=== PATIENT | male | born 1960 | race American Indian/Alaskan Native ===

== ENCOUNTER 2023-07-31 15:59 | Emergency (ER) | payer OTHER ==
[2023-07-31] MEDS ORDERED: Sodium Chloride 0.9% 10 ML Syringe FLUSH PRN (17:30)
[2023-07-31] MEDS ORDERED: Ketorolac 30 MG/ML SDV IVPUSH ONE (17:34)
[2023-07-31] MEDS ORDERED: Iopamidol 612 MG/ML 100 ML Bottle IVPUSH ONE (18:20)
[2023-07-31] MEDS ORDERED: Ketorolac 10 MG Tab PO ONE ×2 (19:48→19:49)
== END 2023-07-31 20:15 | disposition home or self-care (01) ==
LOC: JD.ED 15:59
DX: S30.1XXA Contusion of abdominal wall, initial encounter (principal); W22.09XA Striking against other stationary object, initial encounter
CPT/HCPCS: 72100; 72132; 72193; 73502; 96374; 99284; A9270; J1885; Q9967